=== PATIENT | male | born 1945 ===

== ENCOUNTER 2019-11-13 01:34 | Outpatient (RCR) | payer MEDICARE, SELFPAY | END 2019-12-13 23:59 | disposition home or self-care (01) | LOC: CR 01:34 | PROVIDERS: Family Provider Internal Medicine Cardiovascular Disease; PCP Internal Medicine Geriatric Medicine; Visit Provider Family Medicine | DX: Z51.89 Encounter for other specified aftercare (principal) | CPT/HCPCS: S9472 ==